=== PATIENT | female | born 1990 | race African-American/Black ===

== ENCOUNTER 2017-01-10 06:03 | Emergency (ER) | payer MEDICAID ==
[~2017-01-10] VITALS: Ht 177.8 cm; Wt 86.0 kg
[2017-01-10] MEDS ORDERED: HYDROCODONE/ACETAMINOPHEN 5/325MG TABLET PO ONE (07:15)
[2017-01-10 07:17] VITALS: BP 153/100
== END 2017-01-10 08:40 | disposition home or self-care (01) ==
LOC: ER 07:20
DX: K08.89 Other specified disorders of teeth and supporting structures (principal); I10 Essential (primary) hypertension; F17.200 Nicotine dependence, unspecified, uncomplicated; F12.10 Cannabis abuse, uncomplicated
CPT/HCPCS: 99283

== ENCOUNTER 2024-07-12 21:21 | Emergency (ER) | payer MEDICAID, OTHER ==
[~2024-07-12] VITALS: Ht 180.3 cm; Wt 120.0 kg
[2024-07-12 21:25] VITALS: O2SAT 98
[2024-07-12] MEDS ORDERED: SODIUM CHLORIDE 0.9% 1,000 ML IV ONE (22:00)
[2024-07-13 01:29] VITALS: BP 127/71; PULSE 93; RESP 16; TEMP 36.7; O2SAT 100
[2024-07-13 03:02] LABS: BASOPHILS % 0.4 % (0.0-2.0); DIFFERENTIAL COMMENT 0; EOSINOPHILS % 0.1 % (0.0-5.0); HEMATOCRIT. 33.8 % (36.0-48.0); LYMPHOCYTES % 15.2 % (20.0-50.0); MEAN CORPUSCULAR HEMOGLOBIN 25.9 pg (28.0-32.0); MEAN CORPUSCULAR HGB CONC 32.5 g/dL (31.0-37.0); MEAN CORPUSCULAR VOLUME 79.5 fL (81.0-99.0); MEAN PLATELET VOLUME 8.1 fl (7.4-10.4); MONOCYTES % 12.6 % (2.0-8.0); NEUTROPHILS % 71.7 % (40.0-76.0); PLATELET 226 x1000/uL (130-400); RED BLOOD CELL COUNT 4.25 mill/uL (4.2-5.4); RED CELL DISTRIBUTION WIDTH 13.8 % (11.6-14.6); WHITE BLOOD COUNT 11.4 x1000/uL (4.5-11.0)
[2024-07-13 03:11] LABS: CHLORIDE 106 mEq/L (98-107); POTASSIUM 3.6 mEq/L (3.5-5.1); SODIUM 139 mEq/L (136-145)
[2024-07-13 03:12] LABS: CALCIUM 8.4 mg/dL (8.7-10.4); CARBON DIOXIDE 28 mEq/L (21-32)
[2024-07-13 03:17] LABS: CREATININE 0.9 mg/dL (0.6-1.0); GLUCOSE 110 mg/dL (70-105); UREA NITROGEN BLOOD 6 mg/dL (9-23)
[2024-07-13 03:19] LABS: ACETAMINOPHEN < 2 ug/mL (10-30)
[2024-07-13 03:38] LABS: HCG SCREEN NEGATIVE
[2024-07-13 04:20] LABS: ETHANOL BLOOD < 10 mg/dL (<10)
[2024-07-13] MEDS ORDERED: AZITHROMYCIN 500 MG TABLET PO ONE (05:30)
[2024-07-13] MEDS ORDERED: CEFTRIAXONE SODIUM 500MG VIAL IM ONE (05:30)
== END 2024-07-13 07:50 ==
LOC: ER 21:21
DX: T76.21XA Adult sexual abuse, suspected, initial encounter (principal); R55 Syncope and collapse; I10 Essential (primary) hypertension; F12.90 Cannabis use, unspecified, uncomplicated; Z98.890 Other specified postprocedural states; Y92.89 Other specified places as the place of occurrence of the external cause
CPT/HCPCS: 36415; 93005; 99284; 80048; 80307; 80329; 80320; 84703; 85025; J7030; G0480